=== PATIENT | male | born 1960 | race Caucasian/White ===

== ENCOUNTER → 2016-10-29 | Day surgery (SDC) | payer OTHER ==
[~2016-10-29] VITALS: Ht 200.7 cm; Wt 143.5 kg
[~2016-10-29] MED LIST: BREO ELLIPTA 11 EACH INH; CPAP INH; FLOMAX0.4 MG PO; HYZAAR 100-12.1 EACH PO; PRINIVIL (ZESTR20 MG PO; SENNA S TABLET1 EACH PO
== END ==
LOC: GPOC 10-27 10:00 → GEND 07:41 → GPOC 10:00
PROC: 0DBN8ZX Excision of Sigmoid Colon, Via Natural or Artificial Opening Endoscopic, Diagnostic (ICD-10-PCS; principal; 2016-10-29)
PROC: 0DBL8ZX Excision of Transverse Colon, Via Natural or Artificial Opening Endoscopic, Diagnostic (ICD-10-PCS; 2016-10-29)
DX: Z12.11 Encounter for screening for malignant neoplasm of colon (principal); D12.3 Benign neoplasm of transverse colon; K62.1 Rectal polyp; I10 Essential (primary) hypertension; J44.9 Chronic obstructive pulmonary disease, unspecified; F17.210 Nicotine dependence, cigarettes, uncomplicated; G47.30 Sleep apnea, unspecified; E78.5 Hyperlipidemia, unspecified; Z98.890 Other specified postprocedural states; Z79.899 Other long term (current) drug therapy
CPT/HCPCS: J2001; J7030